=== PATIENT | female | born 1940 | race American Indian/Alaskan Native ===

== ENCOUNTER 2017-02-24 11:39 | Emergency (ER) | payer MEDICARE ==
[2017-02-24 12:23] LABS: Hematocrit 31.7 % (30.3-42.9); Hemoglobin 10.5 gm/dl (10.1-14.3); Mean Corpuscular HGB Conc 33 % (30-34); Mean Corpuscular Hemoglobin 29 pg (28-32); Mean Corpuscular Volume 87 fl (79-97); Platelet Count 300 K/mm3 (140-440); Red Blood Count 3.65 M/mm3 (3.65-5.03); Red Cell Distribution Width 17.2 % (13.2-15.2); White Blood Count 8.8 K/mm3 (4.5-11.0)
[2017-02-24 12:38] LABS: Albumin 3.5 g/dL (3.9-5); Albumin/Globulin Ratio 0.9 %; Bilirubin,Total 0.4 mg/dL (0.1-1.2); Calcium 9.2 mg/dL (8.4-10.2); Chloride 98.6 mmol/L (98-107); Potassium 3.8 mmol/L (3.6-5.0); Total Protein 7.4 g/dL (6.3-8.2)
--- NOTE | 2017-02-24 13:26 | XRay Report ---
CHEST TWO VIEWS: 02/24/17 11:39:00 CLINICAL: Shortness of breath. COMPARISON: None FINDINGS: Normal heart and pulmonary vasculature. The lungs are normally expanded and clear. Exaggerated thoracic kyphosis and scoliosis. IMPRESSION: No acute cardiopulmonary process.
[2017-02-24 15:03] VITALS: BP 138/54
== END 2017-02-24 15:56 | disposition left against medical advice (07) ==
LOC: ED 11:39
DX: R51 Headache (principal); R22.0 Localized swelling, mass and lump, head; Z53.21 Procedure and treatment not carried out due to patient leaving prior to being seen by health care provider
CPT/HCPCS: 36415; 71020; 80053; 85027